=== PATIENT | male | born 1975 | race Two or more races ===

== ENCOUNTER 2018-10-01 11:14 | Inpatient (IN) | payer OTHER ==
[~2018-10-01] VITALS: Ht 185.4 cm; Wt 127.0 kg
[2018-10-01 11:19] VITALS: Ht 185.4 cm; Wt 127.0 kg
--- NOTE | 2018-10-01 11:25 | NUR ---
PT STARTED WITH CHEST PAIN LAST NIGHT PRESSURE LIKE. INCREASED THIS AM. GIVEN 1 NITRO BY CIM AND ASP 325. EMS ON SCENE DID 12 LEAD EKG. AFTER NITRO PT PAIN WAS 3/10. UPON ARRIVAL TO ED PAIN NOW 6/10. PT ARRIVES ALERT AND ORIENTED WITH NO DISTRESS NOTED AND GUARD AT BEDSIDE. EKG PERFORMED UPON ARRIVAL AND GIVEN TO DR BRENNAN. DR BRENNAN AT BEDSIDE TO SEE PT. PT DENIES SOB BUT ADMITS TO NAUSEA WITHOUT VOMITING. BP HIGH AT 161/106
--- NOTE | 2018-10-01 11:29 | NUR ---
PER PARAMEDICS PT HAS BEEN OUT OF USUAL MEDICATIONS FOR 2 DAYS
[2018-10-01 11:51] LABS: BASOPHIL % 0.5 % (0-2); PLATELET COUNT 224 x10^3mcL (130-400); RED CELL DISTRIBUTION WIDTH 13.1 % (11.5-14.5)
[2018-10-01 12:04] LABS: CALCIUM 9.8 mg/dL (8.5-10.1); CARBON DIOXIDE 23.9 mmol/L (21-32); CHLORIDE SERUM 105 mmol/L (98-107); GFR1 > 60 mL/min; GLUCOSE SERUM 133 mg/dL (74-106); POTASSIUM SERUM 3.8 mmol/L (3.5-5.1); SODIUM SERUM 142 mmol/L (136-145)
[2018-10-01 12:09] LABS: ALBUMIN 3.6 g/dL (3.4-5.0); ALKALINE PHOSPHATASE 90 U/L (46-116); ALT/SGPT 20 U/L (16-63); AST/SGOT 18 U/L (15-37); BILIRUBIN TOTAL 0.4 mg/dL (0.20-1.00)
[2018-10-01 12:11] LABS: TOTAL PROTEIN, SERUM 8.5 g/dL (6.4-8.2)
--- NOTE | 2018-10-01 12:40 | NUR ---
PT SITTING SEMI FOWLERS WITH NO DISTRESS NOTED. WILL CONTINUE TO MONITOR
[2018-10-01] MEDS ORDERED: ASPIR 8181 MG PO (13:29)
[2018-10-01] MEDS ORDERED: LASIX20 MG PO (13:29)
[2018-10-01] MEDS ORDERED: LIPITOR40 MG PO (13:29)
[2018-10-01] MEDS ORDERED: CARVEDILOL12.5 M1 PO (13:29)
[2018-10-01] MEDS ORDERED: LISINOPRIL40 MG PO (13:30)
[2018-10-01] MEDS ORDERED: METFORMIN HYDR500 M1 PO (13:30)
[2018-10-01] MEDS ORDERED: ALDACTONE25 MG PO (13:30)
[2018-10-01] MEDS ORDERED: MOT600 PO (13:30)
--- NOTE | 2018-10-01 13:31 | NUR ---
PT PAIN 2/10 AT THIS TIME. PT ALERT AND ORIENTED WITH NO DISTRESS NOTED AND AWAITING ADMISSION
--- NOTE | 2018-10-01 13:56 | NUR ---
REPORT GIVEN TO NANCY. ROOM IS NOT READY AT THIS TIME AND WILL CALL WHEN ROOM IS AVAILABLE
--- NOTE | 2018-10-01 14:00 | NUR ---
BP 183/112. PT HAS BEEN OUT OF PERSONAL MEDS FOR [address] BRENNAN AWARE
--- NOTE | 2018-10-01 14:43 | NUR ---
[facility] ACCOMPANIED BY RN, TRANSPORTER, AND 2 GUARDS. PT A/A/O X 4, CALM, COOPERATIVE; WEARS GLASSES (W/ PT); C/O CONSTANT H/A 3/10. AMBULATORY, NO GAIT OR BALANCE IMPAIRMENT NOTED WHEN [place]ING [place]. ON TELE # 18, HR 89, SR + DEPRESSED ST SEGMENT AND T-WAVES, C/O CONSTANT CHEST PRESSURE 3/10, EXACERBATED BY NOTHING, RELIEVED MODERATELY BY PAIN MEDICATION. SCD BY BEDSIDE. NO ACUTE RESPIRATORY DISTRESS NOTED. IV SITE LH 20G, CDI. ORIENTED PT TO ROOM, BED CONTROLS, CALL LIGHT SYSTEM. SIDE RAILS UP X 2, BED IN LOW POSITION, 2 GUARDS REMAIN AT BEDSIDE. WILL ENDORSE TO EVGENY CRUZ.
[2018-10-01 15:15] LABS: MAGNESIUM 2.3 mg/dL (1.8-2.4)
[2018-10-01 15:16] LABS: CHOLESTEROL/HDL RATIO 6.8
[2018-10-01 15:25] VITALS: BP 186/125
--- NOTE | 2018-10-01 15:40 | NUR ---
REPORTED TO DR MAZA PATIENT BLOOD PRESSURE OF 186/125 (145) AT THIS TIME. PER DR MAZA OKSKIP TO TELEPHONE ORDER 0.1 CLONIDINE Q4H PRN IF SBP > 180 AND/OR DBP > 100. TELEPHONE ORDER READ BACK, CONFIRMED AND FOLLOWED THROUGH. ALL QUESTIONS AND CONCERNS ADDRESSED. ALL NEEDS ATTENDED TO. WILL CONTINUE TO MONITOR
--- NOTE | 2018-10-01 16:03 | NUR ---
PATIENT MEDICATED WITH CLONIDINE 0.1 MG AT THIS TIME FOR ELEVATED BLOOD PRESSURE 186/125 (145) AT THIS TIME. PATIENT TOLERATED WELL. NO ADVERSE EFFECTS NOTED. ALL NEEDS ATTENDED TO. WILL CONTINUE TO MONITOR
[2018-10-01 16:53] LABS: UA SPECIFIC GRAVITY >=1.030 (1.005-1.035); microscopic required? YES; urine erythrocyte NEGATIVE (NEGATIVE)
[2018-10-01 16:56] LABS: AMPHETAMINE QUAL UR NONE DETECTED (See below)
--- NOTE | 2018-10-01 17:20 | NUR ---
SPOKE TO DR COTTER AT THS TIME. PER DR COTTER, OKAY TO INPUT TELEPHONE ORDER FOR HYDROCHLOROTHIAZIDE 25 MG PO DAILY, NORVASC 5MG PO DAILY, AND ORDER SET FOR IN STRESS TEST ORDER SET FOR TOMORROW AT 1430. ALL TELEPHONE ORDERS READ BACK, CONFIRMED, AND FOLLOWED THROUGH. ALL NEEDS ATTENDED TO. WILL CONTINUE TO MONITOR
--- NOTE | 2018-10-01 18:43 | NUR ---
PATIENT RESTING COMFORTABLY IN BED AT THIS TIME. NO APPARENT DISTRESS OR DISCOMFORT NOTED. IV PATENT AND INTACT. ALL QUESTIONS AND CONCERNS ADDRESSED. ALL NEEDS ATTENDED TO. SAFETY PRECAUTIONS MAINTAINED. WILL ENDORSE ALL CARE TO LICENSED MASS REAL ESTATE APPRAISER NURSE. GUARD AT BEDSIDE TO PROMOTE PATIENT SAFETY
[2018-10-01 18:51] VITALS: BP 153/95
--- NOTE | 2018-10-01 19:05 | NUR ---
PT RECEIVED FROM THE DAY SHIFT RN. PT IS ALERT AND ORIENTED X4, CALM AND COOPERATIVE WITH CARE. PT STATES HE STILL HAS CHEST PRESSURE, STATES THE PAIN IS A 2/10 AND THE PRN MORPHINE DID HELP WITH PAIN RELIEF. 2 GUARDS AT THE BEDSIDE. PT RLE SHACKLED TO THE BED, SKIN AND CIRCULATION IS INTACT. SAFETY AND COMFORT MEASURES MAINTAINED, BED IN LOWEST POSITION, CALL LIGHT WITHIN REACH. WILL CONTINUE TO MONITOR AT THIS TIME.
[2018-10-01 20:49] VITALS: BP 147/96
--- NOTE | 2018-10-01 21:11 | NUR ---
PRN MOTRIN GIVEN TO PATIENT FOR CHEST PRESSURE AND HEADACHE. PT STATES THE PAIN IS 2/10 FOR BOTH. AND STATES A THROBBING HEADACHE AND CHEST PRESSURE. PT STATES PAIN IS BECOMING MORE TOLERABLE.
--- NOTE | 2018-10-02 00:21 | NUR ---
PT IS RESTING IN BED WITH EYES CLOSED AT THIS TIME. NO ACUTE DISTRESS NOTED, PT HAS BEEN CALM AND COOPERATIVE WITH CARE, NO S/S OF PAIN NOTED, SAFETY AND COMFORT MEASURES MAINTAINED, BED IN LOWEST POSITION, CALL LIGHT WITHIN REACH. WILL CONTINUE TO MONITOR AT THIS TIME.
--- NOTE | 2018-10-02 05:09 | NUR ---
PT HAS RESTED IN LONG INTERVALS THROUGHOUT THE SHIFT. PT HAS BEEN ALERT AND ORIENTED X4, CALM AND COOPERATIVE WITH CARE. PT IS RESTING IN BED WITH EYES CLOSED AT THIS TIME. NO ACUTE DISTRESS NOTED. NO S/S OF PAIN NOTED. 2 GUARDS AT THE BEDSIDE, PT IS SHACKLED TO THE BED ON THE RLE, SKIN AND CIRCULATION IS INTACT, SAFETY AND COMFORT MEASURES MAINTAINED, BED IN LOWEST POSITION, CALL LIGHT WITHIN REACH. WILL ENDORSE CONTINUITY OF CARE TO THE ONCOMING RN.
[2018-10-02 05:31] VITALS: BP 124/88
[2018-10-02 06:34] LABS: BASOPHIL % 0.4 % (0-2); PLATELET COUNT 197 x10^3mcL (130-400); RED CELL DISTRIBUTION WIDTH 13.4 % (11.5-14.5)
[2018-10-02 06:39] LABS: CALCIUM 8.9 mg/dL (8.5-10.1); CARBON DIOXIDE 26.2 mmol/L (21-32); CHLORIDE SERUM 104 mmol/L (98-107); GFR1 > 60 mL/min; GLUCOSE SERUM 119 mg/dL (74-106); POTASSIUM SERUM 3.9 mmol/L (3.5-5.1); SODIUM SERUM 141 mmol/L (136-145)
--- NOTE | 2018-10-02 07:00 | NUR ---
RECEIVED BEDSIDE REPORT FROM DIALYSIS REGISTERED NURSE NURSE AT THIS TIME. PATIENT RESTING COMFORTABLY IN BED. NO APPARENT DISTRESS OR DISCOMFORT NOTED. 2L NC IN PLACE AND TOLERATING WELL. NO RESPIRATORY DISTRESS OR DISCOMFORT NOTED. NO INDICATION OF SHORTNESS OF BREATH. NO INDICATION OF CHEST PAIN/PRESSURE AT THIS TIME. IV PATENT AND INTACT. ALL QUESTIONS AND CONCERNS ADDRESSED. ALL NEEDS ATTENDED TO. GUARD AT BEDSIDE TO PROMOTE PATIENT SAFETY. WILL CONTINUE TO MONITOR
[2018-10-02 09:32] VITALS: BP 145/96
--- NOTE | 2018-10-02 10:28 | NUR ---
ALL MORNING MEDICATIONS ADMINISTERED AT THIS TIME. PATIENT TOLERATED MEDICATION WELL. NO ADVERSE EFFECTS NOTED AT THIS TIME. ALL NEEDS ATTENDED TO. WILL CONTINUE TO MONITOR
--- NOTE | 2018-10-02 12:31 | NUR ---
PATIENT BLOOD SUGAR 133 AT THIS TIME. NO INSULIN COVERAGE REQUIRED AT THIS TIME. ALL NEEDS ATTENDED TO. WILL CONTINUE TO MONITOR
[2018-10-02 12:47] VITALS: BP 159/96
--- NOTE | 2018-10-02 13:30 | NUR ---
PATIENT DOWN TO STRESS TEST AT THIS TIME. TELE MONITOR ON STANDBY AND WITH TELE CERTIFIED REGISTERED LOCKSMITH. ALL NEEDS ATTENDED TO
--- NOTE | 2018-10-02 16:15 | NUR ---
SPOKE TO DR MZAA AT THIS TIME REGARDING PATIENT REQUESTING TO SHOWER. PER DR MAZA, OKAY TO INPUT TELEPHONE ORDER FOR PATIENT TO SHOWER. TELEPHONE ORDER READ BACK, CONFIRMED, AND FOLLOWED. THROUGH. PATIENT IN SHOWER AT THIS TIME. WILL CONTINUE TO MONITOR
--- NOTE | 2018-10-02 16:45 | NUR ---
PATIENT BLOOD SUGAR 147 AT THIS TIME. NO INSULIN COVERAGE REQUIRED. ALL NEEDS ATTENDED TO. WILL CONTINUE TO MONITOR
--- NOTE | 2018-10-02 16:49 | NUR ---
PAGED DR COTTER TO REPORT STRESS TEST RESULTS AT THIS TIME. AWAITING PHONE CALL BACK. WILL CONTINUE TO MONITOR
--- NOTE | 2018-10-02 17:24 | NUR ---
SPOKE TO DR MAZA AT THIS TIME REGARDING DISCHARGING PATIENT. PER DR MAZA, HE SPOKE TO DR COTTER REGARDING STRESS TEST RESULTS AND PER DR COTTER OKAY TO DISCHARGE PATIENT BACK TO [facility]. ALL QUESTIONS AND CONCERNS ADDRESSED. ALL NEEDS ATTENDED TO. WILL FOLLOW UP WITH DISCHARGE ORDERS.
[2018-10-02 17:34] VITALS: BP 125/83
--- NOTE | 2018-10-02 18:01 | NUR ---
PATIENT STABLE TO BE DISCHARGED BACK TO [facility]. DISCHARGE INSTRUCTIONS GIVEN WELL EDUCATION. DISCHARGE PACKET GIVEN TO GUARD AT BEDSIDE. IV REMOVED WITH CATH INTACT. ID BANDS REMOVED. TELE MONITOR REMOVED AND RETURNED TO [employer] SUPERINTENDENT. ALL BELONGINGS WITH PATIENT. ALL QUESTIONS AND CONCERNS ADDRESSED. ALL NEEDS ATTENDED TO. AWAITING TRANSPORTATION BACK TO [facility] AT THIS TIME. WILL CONTINUE TO MONITOR
[2018-10-02 18:22] VITALS: BP 125/83
--- NOTE | 2018-10-02 18:30 | NUR ---
PATIENT RESTING COMFORTABLY IN BED AT THIS TIME. NO APPARENT DISTRESS OR DISCOMFORT NOTED. IV PATENT AND INTACT. ALL QUESTIONS AND CONCERNS ADDRESSED. ALL NEEDS ATTENDED TO. SAFETY PRECAUTIONS MAINTAINED. WILL ENDORSE ALL CARE TO FURNITURE DIPPER NURSE. GUARD AT BEDSIDE TO PROMOTE PATIENT SAFETY. AWAITING TRANSPORTATION AT THIS TIME
[2018-10-02 22:08] VITALS: BP 156/95
--- NOTE | 2018-10-02 22:20 | NUR ---
PT DISCHARGED OFF THE FLOOR, ID BAND REMOVED. ALL QUESTIONS AND CONCERNS ADDRESSED. DISCHARGE PACKET IN HAND, NEUROSCIENCE DIRECTOR NA AT WHEELCHAIR SIDE ALONG WITH TRAINING CONSULTANT TO TRANSPORT DOWNSTAIRS.
== END 2018-10-02 22:20 | disposition other institution (70) | DRG 311 ==
LOC: ED 11:14 → DU 13:04
PROVIDERS: Emergency Medicine; ADMIT Internal Medicine
DX: I24.9 Acute ischemic heart disease, unspecified (principal); I25.10 Atherosclerotic heart disease of native coronary artery without angina pectoris; I11.9 Hypertensive heart disease without heart failure; E11.65 Type 2 diabetes mellitus with hyperglycemia; E78.5 Hyperlipidemia, unspecified; F15.21 Other stimulant dependence, in remission; I25.2 Old myocardial infarction; E66.9 Obesity, unspecified; Z68.36 Body mass index [BMI] 36.0-36.9, adult; Z87.891 Personal history of nicotine dependence; Z79.82 Long term (current) use of aspirin; Z79.84 Long term (current) use of oral hypoglycemic drugs; Z79.1 Long term (current) use of non-steroidal anti-inflammatories (NSAID)
CPT/HCPCS: 82962; 83880; A9500; G0378; J2270; J2785